=== PATIENT | male | born 1970 | race Two or more races ===

== ENCOUNTER 2023-09-22 18:43 | Inpatient (IN) | payer MEDICAID ==
[~2023-09-22] VITALS: Ht 162.6 cm; Wt 59.0 kg
[2023-09-22 19:32] LABS: BASOPHILS % (AUTO) 1.3 % (0.0-2.0); EOSINOPHILS % (AUTO) 0.2 % (0.0-7.0); HEMATOCRIT 30.6 % (36.7-47.1); HEMOGLOBIN 9.9 g/dL (12.5-16.3); LYMPHOCYTES # (AUTO) 0.2 K/uL (0.8-4.8); MEAN CORPUSCULAR HEMOGLOBIN 29.5 uug (23.8-33.4); MEAN CORPUSCULAR HGB CONC 32 g/dL (32.5-36.3); MEAN CORPUSCULAR VOLUME 91.3 fL (73.0-96.2); MONOCYTES # (AUTO) 0.2 K/uL (0.1-1.30); MONOCYTES % (AUTO) 7.6 % (0.0-11.0); NEUTROPHILS # (AUTO) 2.6 K/uL (1.8-8.9); NEUTROPHILS % (AUTO) 83.9 % (38.5-71.5); PLATELET COUNT (AUTO) 55 K/uL (152-348); RED BLOOD CELL COUNT(AUTO) 3.35 MIL/uL (4.06-5.63); RED CELL DISTRIBUTION WIDTH 20.8 % (12.1-16.2); WHITE BLOOD COUNT (AUTO) 3.1 K/uL (3.6-10.2)
[2023-09-22] MEDS ORDERED: THIAMINE HCL 200 MG/2 ML VIAL ONE (19:32)
[2023-09-22] MEDS ORDERED: levETIRAcetam 500 MG/5 ML VIAL IV ONE (19:32)
[2023-09-22] MEDS ORDERED: MVI-12 10 ML ONE (19:33)
[2023-09-22] MEDS ORDERED: LORAZEPAM 2 MG/1 ML VIAL ONE (19:33)
[2023-09-22 19:35] LABS: DIFFERENTIAL COMMENT 1
[2023-09-22] MEDS: LORAZEPAM 2 MG/1 ML VIAL IV ONE (19:44)
[2023-09-22] MEDS: levETIRAcetam IV 500 MG in IV DEXTROSE 5% 100 ML IV ONE (19:44)
[2023-09-22] MEDS: THIAMINE HCL 200 MG/2 ML VIAL IV ONE (19:44)
[2023-09-22] MEDS: IV NS 1000 ML 1,000 ML IV ONE (19:45)
[2023-09-22 19:47] LABS: CALCIUM 8.9 mg/dL (8.5-10.1); CARBON DIOXIDE 26 mmol/L (21-32); CHLORIDE 96 mmol/L (98-107); CREATININE 0.7 mg/dL (0.6-1.3); GLUCOSE 152 mg/dL (74-106); POTASSIUM 3.2 mmol/L (3.5-5.1); SODIUM SERUM 136 mmol/L (136-145); UREA NITROGEN, BLOOD 7 mg/dL (7-18)
[2023-09-22 19:53] LABS: ALANINE AMINOTRANSFERASE 39 U/L (16-63); ALKALINE PHOSPHATASE 87 U/L (50-136); ASPARTATE AMINOTRANSFERASE 70 U/L (15-37); BILIRUBIN,DIRECT 0.3 mg/dL (0.0-0.2); ETHANOL < 3 MG/DL (0-10); TOTAL PROTEIN, SERUM 8.1 g/dL (6.4-8.2)
[2023-09-22 19:55] LABS: MAGNESIUM 1.9 mg/dL (1.8-2.4)
[2023-09-22] MEDS: MVI-12 10 ML IV ONE (19:57)
[2023-09-22 19:59] LABS: LACTIC ACID 4.5 mmol/L (0.4-2.0)
[2023-09-22 20:56] LABS: LYMPHOCYTES % (MANUAL) 8 % (20-40); MONOCYTES % (MANUAL) 6 % (2-10); NEUTROPHILS % (MANUAL) 86 % (42-75)
[2023-09-22 20:57] LABS: ANISOCYTOSIS 2+; PLATELET ESTIMATE MARKED DECREASED
[2023-09-22 21:15] LABS: *AMPHETAMINE, URINE NEGATIVE (NEGATIVE); *BARBITURATE, URINE NEGATIVE (NEGATIVE); *BENZODIAZEPINE, URINE NEGATIVE (NEGATIVE); *CANNABINOID, URINE NEGATIVE (NEGATIVE); *COCCAINE, URINE NEGATIVE (NEGATIVE); *OPIATE, URINE NEGATIVE (NEGATIVE); *PHENCYCLIDINE SCREEN,URINE NEGATIVE (NEGATIVE); FENTANYL, URINE NEGATIVE (NEGATIVE)
[2023-09-22] MEDS ORDERED: POTASSIUM CHLORIDE 20 MEQ TAB.PRT.SR ONE (21:30)
[2023-09-22] MEDS ORDERED: PANTOPRAZOLE SODIUM 40 MG VIAL ONE (21:46)
[2023-09-22] MEDS: PANTOPRAZOLE SODIUM IV 40 MG in IV DEXTROSE 5% 100 ML IV ONE (21:49)
[2023-09-22] MEDS: POTASSIUM CHLORIDE 20 MEQ TAB.PRT.SR PO ONE (21:49)
[2023-09-23] MEDS ORDERED: MAGNESIUM HYDROXIDE 30 ML LIQUID UDC PO PRN (01:15)
[2023-09-23] MEDS ORDERED: LORAZEPAM 0.5 MG TABLET PO PRN (01:15)
[2023-09-23] MEDS ORDERED: ACETAMINOPHEN 325 MG TABLET PO PRN (01:15)
[2023-09-23] MEDS ORDERED: ONDANSETRON 4 MG/2 ML VIAL IV PRN (01:15)
[2023-09-23] MEDS ORDERED: REMEDY ESSENTIAL ZINC PASTE 113 GM TP PRN (01:15)
[2023-09-23] MEDS: THIAMINE HCL 100 MG TABLET PO ONE (03:05)
[2023-09-23 03:41] VITALS: BP 103/73; TEMP 99.3; O2SAT 96
[2023-09-23 03:55] VITALS: TEMP 99.3
[2023-09-23] MEDS: IV NS 1000 ML 1,000 ML IV PRN (06:29)
[2023-09-23 07:42] VITALS: BP 104/76; TEMP 97.7; O2SAT 97
[2023-09-23 07:58] LABS: THYROID STIMULATING HORMONE 3.979 mIU/mL (0.358-3.740)
[2023-09-23 08:03] LABS: MONOCYTES # (AUTO) 0.4 K/uL (0.1-1.30); NEUTROPHILS # (AUTO) 2.4 K/uL (1.8-8.9)
[2023-09-23 08:05] LABS: ALANINE AMINOTRANSFERASE 31 U/L (16-63); ALBUMIN 3.6 g/dL (3.4-5.0); ALKALINE PHOSPHATASE 75 U/L (50-136); AMYLASE 72 U/L (25-115); ASPARTATE AMINOTRANSFERASE 52 U/L (15-37); BILIRUBIN,DIRECT 0.3 mg/dL (0.0-0.2); BILIRUBIN,TOTAL 1.1 mg/dL (0.2-1.0); CALCIUM 8.5 mg/dL (8.5-10.1); CARBON DIOXIDE 25 mmol/L (21-32); CHLORIDE 100 mmol/L (98-107); CREATININE 0.5 mg/dL (0.6-1.3); GLUCOSE 80 mg/dL (74-106); LIPASE 168 U/L (16-77); MAGNESIUM 2.1 mg/dL (1.8-2.4); PHOSPHOROUS 2.5 mg/dL (2.5-4.9); POTASSIUM 3.5 mmol/L (3.5-5.1); SODIUM SERUM 135 mmol/L (136-145); TOTAL PROTEIN, SERUM 7.6 g/dL (6.4-8.2); UREA NITROGEN, BLOOD 5 mg/dL (7-18)
[2023-09-23 08:07] LABS: BASOPHILS # (AUTO) 0.1 K/UL (0.0-0.2); BASOPHILS % (AUTO) 1.6 % (0.0-2.0); EOSINOPHILS % (AUTO) 1.1 % (0.0-7.0); LYMPHOCYTES % (AUTO) 25.2 % (20.5-51.5); MEAN CORPUSCULAR HEMOGLOBIN 29.7 uug (23.8-33.4); MEAN CORPUSCULAR HGB CONC 33 g/dL (32.5-36.3); MEAN CORPUSCULAR VOLUME 91.5 fL (73.0-96.2); MONOCYTES % (AUTO) 10.2 % (0.0-11.0); NEUTROPHILS % (AUTO) 61.9 % (38.5-71.5); PLATELET COUNT (AUTO) 50 K/uL (152-348); RED BLOOD CELL COUNT(AUTO) 3.38 MIL/uL (4.06-5.63); RED CELL DISTRIBUTION WIDTH 20.6 % (12.1-16.2); WHITE BLOOD COUNT (AUTO) 3.9 K/uL (3.6-10.2)
[2023-09-23 08:20] LABS: DIFFERENTIAL COMMENT 1
[2023-09-23] MEDS: levETIRAcetam IV 500 MG in IV DEXTROSE 5% 100 ML IV SCH (08:55)
[2023-09-23] MEDS: THIAMINE HCL 100 MG TABLET PO SCH (08:56)
[2023-09-23] MEDS: MULTIVIT, IRON, MIN NO. 8, FA TABLET PO SCH (08:56)
[2023-09-23] MEDS: FOLIC ACID/VITAMIN B COMP W-C TABLET PO SCH (08:56)
[2023-09-23 11:01] VITALS: BP 109/81; TEMP 98.7; O2SAT 95
[2023-09-23 15:08] VITALS: BP 101/70; TEMP 97.4; O2SAT 98
[2023-09-23 15:09] LABS: LYMPHOCYTES % (MANUAL) 30 % (20-40); MONOCYTES % (MANUAL) 8 % (2-10); NEUTROPHILS % (MANUAL) 62 % (42-75); PLATELET ESTIMATE DECREASED
[2023-09-23 15:10] LABS: ANISOCYTOSIS 2+; STOMATOCYTES 1+
[2023-09-23 15:11] LABS: HYPOCHROMASIA 1+
[2023-09-23 20:30] VITALS: BP 114/73; TEMP 99.2; O2SAT 97
[2023-09-23] MEDS: LORAZEPAM 1 MG TABLET PO PRN (21:13)
[2023-09-24] VITALS (7 sets, daily range): BP systolic 106–138; BP diastolic 58–84; TEMP 97–99.7; O2SAT 94–98
[2023-09-24] MEDS: LORAZEPAM 2 MG/1 ML VIAL IV PRN (01:39)
[2023-09-24] MEDS: HALOPERIDOL LACTATE 5 MG/1 ML VIAL IM ONE (05:44)
[2023-09-24] MEDS: diphenhydrAMINE 50 MG/1 ML VIAL IM ONE (05:44)
[2023-09-24] MEDS: LORAZEPAM 2 MG/1 ML VIAL IM ONE (05:44)
[2023-09-24 09:39] LABS: THYROID STIMULATING HORMONE 3.323 mIU/mL (0.358-3.740)
[2023-09-24] MEDS ORDERED: LORAZEPAM 2 MG/1 ML VIAL IV PRN (09:45)
[2023-09-24] MEDS ORDERED: LORAZEPAM 1 MG TABLET PO PRN (11:45)
[2023-09-25 06:00] VITALS: BP 122/83; TEMP 99.7; O2SAT 97
[2023-09-25 07:23] LABS: BASOPHILS % (AUTO) 0.7 % (0.0-2.0); EOSINOPHILS # (AUTO) 0.1 K/uL (0.0-0.7); EOSINOPHILS % (AUTO) 3.6 % (0.0-7.0); HEMATOCRIT 30.8 % (36.7-47.1); HEMOGLOBIN 10.1 g/dL (12.5-16.3); MEAN CORPUSCULAR HEMOGLOBIN 30.2 uug (23.8-33.4); MEAN CORPUSCULAR HGB CONC 33 g/dL (32.5-36.3); MONOCYTES # (AUTO) 0.4 K/uL (0.1-1.30); MONOCYTES % (AUTO) 12.5 % (0.0-11.0); NEUTROPHILS # (AUTO) 1.8 K/uL (1.8-8.9); NEUTROPHILS % (AUTO) 52.2 % (38.5-71.5); PLATELET COUNT (AUTO) 67 K/uL (152-348); RED BLOOD CELL COUNT(AUTO) 3.35 MIL/uL (4.06-5.63); RED CELL DISTRIBUTION WIDTH 20.9 % (12.1-16.2); WHITE BLOOD COUNT (AUTO) 3.4 K/uL (3.6-10.2)
[2023-09-25 07:32] LABS: DIFFERENTIAL COMMENT 1
[2023-09-25 07:35] LABS: ALANINE AMINOTRANSFERASE 36 U/L (16-63); ALBUMIN 3.3 g/dL (3.4-5.0); ALKALINE PHOSPHATASE 79 U/L (50-136); ASPARTATE AMINOTRANSFERASE 69 U/L (15-37); BILIRUBIN,TOTAL 0.6 mg/dL (0.2-1.0); CALCIUM 8.3 mg/dL (8.5-10.1); CARBON DIOXIDE 25 mmol/L (21-32); CHLORIDE 102 mmol/L (98-107); CREATININE 0.4 mg/dL (0.6-1.3); GLUCOSE 89 mg/dL (74-106); MAGNESIUM 1.8 mg/dL (1.8-2.4); PHOSPHOROUS 3.5 mg/dL (2.5-4.9); POTASSIUM 2.9 mmol/L (3.5-5.1); SODIUM SERUM 137 mmol/L (136-145); TOTAL PROTEIN, SERUM 7.1 g/dL (6.4-8.2); UREA NITROGEN, BLOOD 3 mg/dL (7-18)
[2023-09-25] MEDS ORDERED: POTASSIUM CHLORIDE 20 MEQ TAB.PRT.SR PO SCH (09:45)
[2023-09-25] MEDS: POTASSIUM CHLORIDE 10 MEQ TAB.PRT.SR PO SCH (10:41)
[2023-09-25 11:18] LABS: ANISOCYTOSIS 1+; BAND % (MANUAL) 1 % (0-10); EOSINOPHILS % (MANUAL) 2 % (0-8); HYPOCHROMASIA 1+; LYMPHOCYTES % (MANUAL) 34 % (20-40); MONOCYTES % (MANUAL) 11 % (2-10); NEUTROPHILS % (MANUAL) 52 % (42-75); PLATELET ESTIMATE DECREASED
[2023-09-25 11:31] VITALS: BP 123/86; TEMP 98.2; O2SAT 97
[2023-09-25] MEDS ORDERED: FOLI0.8T2 PO (12:27)
[2023-09-25] MEDS ORDERED: THIA100T13 PO (12:27)
[2023-09-25 15:36] VITALS: BP 124/85; TEMP 98.6; O2SAT 97
[2023-09-25 20:00] VITALS: BP 123/87; TEMP 97.8; O2SAT 97
== END 2023-09-25 19:53 | disposition home or self-care (01) | DRG 53 ==
LOC: ER 18:45 → TELE3 09-23 01:10 → MEDSURG3 09-24 10:30
PROVIDERS: ADMIT Nurse Practitioner Family
DX: R56.9 Unspecified convulsions (principal); D61.818 Other pancytopenia; E87.21 Acute metabolic acidosis; K92.0 Hematemesis; F10.139 Alcohol abuse with withdrawal, unspecified; E87.6 Hypokalemia; Y90.0 Blood alcohol level of less than 20 mg/100 ml
CPT/HCPCS: 36415; 70030-TC; 70450; 83605; 83690; 83735; 83921; 84100; 84443; 85025; 93005; C1758; G0378; G0480; J1200; J1630; J1953; J2060; J2470; J3411; J3490; J7040